=== PATIENT | male | born 1975 | race Caucasian/White ===

== ENCOUNTER → 2018-05-21 | Outpatient (CLI) | payer OTHER ==
[~2018-05-21] MED LIST: CIPROFLOXIN HC2.5 M1; LIPITOR 20 MG T20 M1; OMEPRAZOLE20 M2; RESTORIL15 MG; SINGULAIR 10 MG10 M1; TOBRAMYCIN SULFA5 ML OP; ZYRTEC10 MG
== END ==
LOC: M.RAD 10:05
DX: R07.9 Chest pain, unspecified (principal); R05 Cough

== ENCOUNTER → 2018-07-02 | Outpatient (CLI) | payer OTHER ==
[2018-07-02 12:09] LABS: ABSOLUTE EOSINOPHILS 0.1 thou/uL (0.0-0.7); ABSOLUTE LYMPHOCYTES 0.9 thou/uL (0.8-5.3); ABSOLUTE MONOCYTES 0.3 thou/uL (0.0-1.2); EOSINOPHILS 1.9 %; HEMATOCRIT 44.7 % (42.0-52.0); HEMOGLOBIN 15.7 gm/dL (14.0-18.0); LYMPHOCYTES 27.5 %; MCH 34.9 pg (26.0-34.0); MCHC 35.2 g/dL (28.0-37.0); MCV 99.2 fL (80.0-100.0); MONOCYTES 9.5 %; MPV 8.1 fl. (7.2-11.1); NUCLEATED RBCS 0 /100WBC; PLATELET COUNT* 130 thou/uL (150-400); POLYS 60.1 %; RDW-CV 11.9 % (10.5-14.5); WBC 3.3 thou/uL (4.0-11.0)
[2018-07-02 12:23] LABS: ALBUMIN 3.9 g/dL (3.4-5.0); CREATININE 0.8 mg/dL (0.6-1.3); MAGNESIUM 1.9 mg/dL (1.8-2.4); POTASSIUM 4.3 mmol/L (3.5-5.1); TOTAL BILIRUBIN 0.8 mg/dL (<0.1-1.0); TOTAL PROTEIN 7.4 g/dL (6.4-8.2)
== END ==
LOC: M.LAB 11:50
PROVIDERS: Nurse Practitioner Family
DX: K92.1 Melena (principal); R00.2 Palpitations; R06.02 Shortness of breath

== ENCOUNTER → 2020-08-03 | Outpatient (CLI) | payer OTHER ==
[2020-08-03 10:33] LABS: ANION GAP 7 mmol/L (7-16); BUN 8 mg/dL (7-18); CHLORIDE 108 mmol/L (98-107); CHOLESTEROL 276 mg/dL (<200); CO2 30 mmol/L (21-32); CREATININE 0.7 mg/dL (0.6-1.3); GLUCOSE 101 mg/dL (70-99); HDL CHOLESTEROL 54 mg/dL (>40); LDL CHOLESTEROL 161 mg/dL (<100); POTASSIUM 4.5 mmol/L (3.5-5.1); SODIUM 145 mmol/L (136-145); TC:HDL 5.1 Ratio (Not establshd); TRIGLYCERIDE 306 mg/dL (<150); VLDL 61 mg/dL (<40)
[2020-08-03 10:36] LABS: SERUM ASSESSMENT Clear
== END ==
LOC: M.LAB 10:03
PROVIDERS: ATTEND Internal Medicine Cardiovascular Disease
DX: E78.00 Pure hypercholesterolemia, unspecified (principal)